=== PATIENT | male | born 1990 | race Caucasian/White ===

== ENCOUNTER 2019-02-02 06:54 | Observation (INO) ==
[2019-02-02 07:55] LABS: Basophils # (auto) 0.02 K/uL (0-0.2); Basophils % (auto) 0.4 %; Eosinophils # (auto) 0.07 K/uL (0-0.5); Eosinophils % (auto) 1.4 %; Hemoglobin 15.8 g/dL (14.0-18.0); Immature Granulocytes # (auto) 0.03 K/uL (0.00-0.02); Immature Granulocytes % (auto) 0.6 %; Lymphocytes # (auto) 1.54 K/uL (1.2-3.4); Lymphocytes % (auto) 30.2 %; Mean Corpuscular Hemoglobin 31.5 pg (25-34); Mean Corpuscular Hgb Conc 35.1 g/dL (32-36); Mean Corpuscular Volume 89.6 fL (80-100); Monocytes # (auto) 0.44 K/uL (0.11-0.59); Monocytes % (auto) 8.6 %; Neutrophils % (auto) 58.8 %; Platelet Count 178 K/uL (130-400); RDW Coefficient of Variation 13.2 % (11.5-14.5); RDW Standard Deviation 43.2 fL (36.4-46.3); Red Blood Count 5.02 M/uL (4.7-6.1)
[2019-02-02 08:02] LABS: Appearance Urine Clear (Clear); Bilirubin Urine Negative (Negative); Blood Urine Negative (Negative); Color Urine Yellow; Glucose Urine UA Negative (Negative); Ketones Urine Negative (Negative); Leukocyte Esterase Urine Negative (Negative); Nitrite Urine Negative (Negative); Protein Urine Negative (Negative); Specific Gravity Urine >= 1.030 (1.000-1.030); Urobilinogen Urine Negative (Negative)
[2019-02-02 08:02] LABS: Alanine Aminotransferase 66 U/L (12-78); Aspartate Aminotransferase 24 U/L (15-37); BUN Creatinine Ratio 13.2 (10-20); Blood Urea Nitrogen 17 mg/dl (7-18); Calcium 8.8 mg/dl (8.5-10.1); Carbon Dioxide 25 mmol/L (21-32); Chloride 107 mmol/L (98-107); Creatinine Clr Calc Pharmacy 107.9 ml/min; Est GFR (African American) 83.9; Est GFR (Non-African American) 72.4; Glucose 148 mg/dl (70-99); Lipase 74 U/L (73-393); Partial Thromboplastin Ratio 1.1; Partial Thromboplastin Time 28.6 Seconds (21.0-31.0); Potassium 3.8 mmol/L (3.5-5.1); Prothrombin Time 10.5 Seconds (9.0-12.0); Sodium 140 mmol/L (136-145)
[2019-02-02 08:07] LABS: Albumin Globulin Ratio 1.2 (0.9-2); Alkaline Phosphatase 90 U/L (45-117); Bilirubin,Total 0.5 mg/dl (0.2-1); Globulin 3.3 gm/dl (2.5-4.0); Total Protein 7.3 gm/dl (6.4-8.2); Troponin I < 0.015 ng/ml (0-0.045)
--- NOTE | 2019-02-02 08:17 | XRay Report ---
XR chest 1V portable HISTORY: 28 years-old Male abdominal pain acute generalized abdominal pain COMPARISON: CT thoracic spine 07/12/2013 TECHNIQUE: Portable AP view of the chest FINDINGS: Cardiomediastinal and hilar silhouettes are within normal limits. No pneumothorax, pleural effusion, focal airspace consolidation or overt pulmonary edema. Bones of the chest appear grossly intact. IMPRESSION: No acute process. The above report was generated using voice recognition software. It may contain grammatical, syntax o r spelling errors. Electronically signed by: Garret Alejandro M.D. 02/02/2019 8:16 AM
[2019-02-02] MEDS ORDERED: ONDANSETRON INJ 2 MG/ML 2 ML VIAL IV PRN ×3 (09:41→16:42)
--- NOTE | 2019-02-02 09:46 | Emergency Department Note ---
History of Present Illness General Chief Complaint: Abdominal Pain Stated Complaint: ABDOMINAL PAIN Source: patient Mode of arrival: ambulatory Limitations: no limitations History of Present Illness Provider Complaint: abdominal pain Onset (ago): 2 hour(s) Pain Consistency: constant Location: periumbilical Radiation: none Migration to: no migration Severity: moderate Maximum Pain Intensity: 7 Current Pain Intensity: 7 Quality: + cramping, + fullness and + sharp Relieved By: + rest Exacerbated By: + movement Context: + other (eating breakfast, hx. umbilical hernia) Associated Symptoms: + nausea; no vomiting, no diarrhea, no fever, no chills, no constipation, no dysuria, no hematuria, no headache, no chest pain, no weakness and no breathing difficulty Treatments prior to arrival: none This 28-year-old male patient presents emergency department today, ambulatory, complaining of periumbilical abdominal pain which began while eating breakfast this morning. Patient reports a history of an umbilical hernia, and over the weekend struck it with a car door. He states on Saturday he noticed that the hernia "moved", and states on Saturday it "moved back into place". The patient states he has been experiencing some intermittent pain and discomfort in the area throughout the weekend, but this morning while eating breakfast he felt the hernia had twisted in his abdomen. The patient reports soreness above his bellybutton with generalized abdominal discomfort. He denies any vomiting, fever, diarrhea, constipation. Last bowel movement was yesterday. He does report associated nausea. He was not able to finish his breakfast or drink an ything this morning due to the symptoms. He denies history of surgical repair. He denies any chest pain, dyspnea, weakness, numbness, tingling, or other associated symptoms. Home Medications Home Medications Medication Instructions Recorded Confirmed Type No Known Home Medications 02/02/19 02/02/19 History Allergies Allergy/AdvReac Type Severity Reaction Status Date / Time erythromycin base Allergy Unknown unk Verified 02/02/19 07:22 sulfisoxazole Allergy Unknown unk Verified 02/02/19 07:22 Past Med/Surg History Medical History No pertinent past medical history Social History Feels Safe at Home: Yes Smoking Status: Former smoker Review of Systems A total of 10 systems reviewed and were otherwise negative Physical Exam Vital Signs: Vital Signs - 24 hr 02/02/19 07:00 02/02/19 07:33 02/02/19 08:02 Temperature 36.6 C Temperature Source Oral Pulse Rate 73 Pulse Rate [Left F ernie] 93 H Pulse Rhythm Regular Pulse Rhythm [Left Finger] Pulse Strength [Le ft Finger] Respiratory Rate 18 18 Respiratory Effort / Characteristics Non-Labored Respiratory Depth Normal Respiratory Patter n Regular Blood Pressure 150/96 H Blood Pressure [Le ft Arm] 117/83 Blood Pressure Brittani n 114 Blood Pressure Brittani n [Left Arm] 94 Blood Pressure Pos ition Sitting Blood Pressure Pos ition [Left Arm] Pulse Oximetry 98 97 98 Oxygen Delivery Me thod Room Air Room Air Room Air Sepsis Recent Feve r Within 48 Hours No Sepsis Action Take n by Nursing No Action Required 02/02/19 09:29 02/02/19 11:00 02/02/19 12:33 Temperature Temperature Source Pulse Rate 74 Pulse Rate [Left F ernie] 82 102 H Pulse Rhythm Pulse Rhythm [Left Finger] Pulse Strength [Le ft Finger] Respiratory Rate 24 20 20 Respiratory Effort / Characteristics Non-Labored Respiratory Depth Normal Respiratory Patter n Regular Blood Pressure 136/92 Blood Pressure [Le ft Arm] 136/75 140/83 Blood Pressure Brittani n Blood Pressure Brittani n [Left Arm] 95 102 Blood Pressure Pos ition Blood Pressure Pos ition [Left Arm] Pulse Oximetry 98 96 97 Oxygen Delivery Me thod Room Air Room Air Room Air Sepsis Recent Feve r Within 48 Hours Sepsis Action Take n by Nursing 02/02/19 12:54 Temperature 37.1 C Temperature Source Oral Pulse Rate Pulse Rate [Left F ernie] 79 Pulse Rhythm Pulse Rhythm [Left Finger] Regular Pulse Strength [Le ft Finger] Normal Respiratory Rate 18 Respiratory Effort / Characteristics Non-Labored Sponta neous Respiratory Depth Normal Respiratory Patter n Blood Pressure Blood Pressure [Le ft Arm] 129/69 Blood Pressure Brittani n Blood Pressure Brittani n [Left Arm] 89 Blood Pressure Pos ition Blood Pressure Pos ition [Left Arm] Sitting Pulse Oximetry 98 Oxygen Delivery Me thod Room Air Sepsis Recent Feve r Within 48 Hours Sepsis Action Take n by Nursing Physical Exam: VITALS: Vitals are noted on the nurse's note and reviewed by myself. Vital signs stable. GENERAL: This is a 28-year-old obese white male, in no acute distress, nondiaphoretic, well-developed well-nourished. SKIN: The skin was without rashes, erythema, edema, or bruising. There is no tenting of the skin. Capillary refill less than 2 seconds. HEAD: Normocephalic atraumatic. EARS: External auditory canals clear, tympanic membranes pearly [place] without erythema or effusion bilaterally. EYES: Pupils equal round and reactive to light and accommodation. Conjunctivae without injection, sclerae without icterus. NOSE: Patent, turbinates without inflammation or discharge. No sinus tend erness. MOUTH: Mucous membranes moist. Tonsils are not enlarged. Pharynx without erythema or exudate. Uvula midline. Airway patent. Tongue does not deviate. NECK: Supple without nuchal rigidity. No lymphadenopathy. HEART: Regular rate and rhythm without murmurs gallops or rubs. LUNGS: Clear to auscultation bilaterally without wheezes, rales or rhonchi. No retractions or accessory muscle use. ABDOMEN: Positive bowel sounds x 4. Normal tympanic percussion. Periumbilical abdominal tenderness to palpation. The abdomen is otherwise soft, nontender, without masses or organomegaly. No palpable hernia noted per my exam. Gottlieb sign negative. No guarding or rebound tenderness. No CVA tenderness bilaterally. MUSCULOSKELETAL: No muscle atrophy, erythema, or edema noted. Full range of motion without joint tenderness in all extremities. No tenderness to palpation. Normal gait. Strength 5/5 throughout. NEURO: Patient was alert and oriented to person place and time. No focal ne urological deficits. Course The patient was seen and evaluated as above. IV access obtained, labs drawn. Imaging performed and reviewed by myself and radiologist as above. I did receive a phone call from Dr. Geller regarding the findings. Labs reviewed by myself. I discussed the findings with the patient at bedside. I discussed the case with Dr. Aguirre. He did agree to see and evaluate the patient. The patient was ultimately taken to the OR after evaluation by the general surgery team. Administered Medications Ioversol (Optiray 320 100ml) 94 ml IV ONCE PRN PRN Reason: Interaction Checking Stop: 02/06/19 10:20 Last Admin: 02/02/19 10:21 Dose: 94 ml Documented by: [id number] Ondansetron HCl (Zofran) 4 mg IV Q1HWA PRN PRN Reason: Nausea Stop: 03/04/19 09:40 Last Admin: 02/02/19 09:50 Dose: 4 mg Documented by: [id number] Discontinued Medications Bupivacaine HCl (Marcaine 0.5% Mpf) Confirm Administered Dose 30 ml .ROUTE .STK- MED ONE Stop: 02/02/19 13:22 Last Admin: 02/02/19 14:14 Dose: 5 ml Documented by: [id number] Cefazolin Sodium (Ancef) Confirm Administered Dose 1,000 mg .ROUTE .STK-MED ONE Stop: 02/02/19 13:22 Last Admin: 02/02/19 14:13 Dose: 1,000 mg Documented by: [id number] Medical Decision Making Differential Diagnosis + peptic ulcer disease, + biliary pathology, + UTI, + obstruction, + mesenteric ischemia, + aortic pathology, + infections, + inflammatory bowel disease, + renal colic, + torsion (male), + epididymitis (male), + abdominal pain, + appendicitis, + calculus of kidney, + constipation, + diverticulitis, + endomet riosis, + gastroenteritis, + pancreatitis and + small bowel obstruction Home Medications Current Medication List: was personally reviewed by me Laboratory Data Attestation: I reviewed the patient's lab results. No leukocytosis, anemia, thrombocytopenia. Renal, hepatic function, and electrolytes without significant abnormality. Coags normal. Troponin negative. Lipase 74. Urinalysis without evidence of blood or infection. Result diagrams: 02/02/19 07:28 02/02/19 07:28 Lab Results 02/02/19 02/02/19 02/02/19 Range/Units 07:28 07:28 07:28 WBC 5.10 (4.8-10.8) K/uL RBC 5.02 (4.7-6.1) M/uL Hgb 15.8 (14.0-18.0) g/dL Hct 45.0 (42-52) % MCV 89.6 (80-100) fL MCH 31.5 (25-34) pg MCHC 35.1 (32-36) g/dL RDW Std Deviation 43.2 (36.4-46.3) fL RDW Coeff of Jad 13.2 (11.5-14.5) % Plt Count 178 (130-400) K/uL MPV 9.0 (7.4-10.4) fL Immature Gran % (Auto) 0.6 % Neut % (Auto) 58.8 % Lymph % (Auto) 30.2 % Barber % (Auto) 8.6 % Eos % (Auto) 1.4 % Baso % (Auto) 0.4 % Immature Gran # (Auto) 0.03 H (0.00-0.02) K/uL Neut # (Auto) 3.00 (1.4-6.5) K/uL Lymph # (Auto) 1.54 (1.2-3.4) K/uL Barber # (Auto) 0.44 (0.11-0.59) K/uL Eos # (Auto) 0.07 (0-0.5) K/uL Baso # (Auto) 0.02 (0-0.2) K/uL PT 10.5 (9.0-12.0) Seconds INR 1.0 (0.9-1.1) APTT 28.6 (21.0-31.0) Seconds PTT Ratio 1.1 Sodium 140 (136-145) mmol/L Potassium 3.8 (3.5-5.1) mmol/L Chloride 107 (98-107) mmol/L Carbon Dioxide 25 (21-32) mmol/L Anion Gap 8.0 (3-11) BUN 17 (7-18) mg/dl Creatinine 1.32 (0.6-1.4) mg/dl Est Cr Clr Drug Dosing 107.9 ml/min Est GFR ( Amer) 83.9 Est GFR (Non-Af Amer) 72.4 BUN/Creatinine Ratio 13.2 (10-20) Glucose 148 H (70-99) mg/dl Calcium 8.8 (8.5-10.1) mg/dl Total Bilirubin 0.5 (0.2-1) mg/dl AST 24 (15-37) U/L ALT 66 (12-78) U/L Alkaline Phosphatase 90 (45-117) U/L Troponin I < 0.015 (0-0.045) ng/ml Total Protein 7.3 (6.4-8.2) gm/dl Albumin 4.0 (3.4-5.0) gm/dl Globulin 3.3 (2.5-4.0) gm/dl Albumin/Globulin Ratio 1.2 (0.9-2) Lipase 74 (73-393) U/L Urine Color Urine Appearance (Clear) Urine pH (4.5-7.5) Ur Specific [place] (1.000-1.030) Urine Protein (Negative) Urine Glucose (UA) (Negative) Urine Ketones (Negative) Urine Blood (Negative) Urine Nitrite (Negative) Urine Bilirubin (Negative) Urine Urobilinogen (Negative) Ur Leukocyte Esterase (Negative) 02/02/19 Range/Units Unknown WBC (4.8-10.8) K/uL RBC (4.7-6.1) M/uL Hgb (14.0-18.0) g/dL Hct (42-52) % MCV (80-100) fL MCH (25-34) pg MCHC (32-36) g/dL RDW Std Deviation (36.4-46.3) fL RDW Coeff of Jad (11.5-14.5) % Plt Count (130-400) K/uL MPV (7.4-10.4) fL Immature Gran % (Auto) % Neut % (Auto) % Lymph % (Auto) % Barber % (Auto) % Eos % (Auto) % Baso % (Auto) % Immature Gran # (Auto) (0.00-0.02) K/uL Neut # (Auto) (1.4-6.5) K/uL Lymph # (Auto) (1.2-3.4) K/uL Barber # (Auto) (0.11-0.59) K/uL Eos # (Auto) (0-0.5) K/uL Baso # (Auto) (0-0.2) K/uL PT (9.0-12.0) Seconds INR (0.9-1.1) APTT (21.0-31.0) Seconds PTT Ratio Sodium (136-145) mmol/L Potassium (3.5-5.1) mmol/L Chloride (98-107) mmol/L Carbon Dioxide (21-32) mmol/L Anion Gap (3-11) BUN (7-18) mg/dl Creatinine (0.6-1.4) mg/dl Est Cr Clr Drug Dosing ml/min Est GFR ( Amer) Est GFR (Non-Af Amer) BUN/Creatinine Ratio (10-20) Glucose (70-99) mg/dl Calcium (8.5-10.1) mg/dl Total Bilirubin (0.2-1) mg/dl AST (15-37) U/L ALT (12-78) U/L Alkaline Phosphatase (45-117) U/L Troponin I (0-0.045) ng/ml Total Protein (6.4-8.2) gm/dl Albumin (3.4-5.0) gm/dl Globulin (2.5-4.0) gm/dl Albumin/Globulin Ratio (0.9-2) Lipase (73-393) U/L Urine Color Yellow Urine Appearance Clear (Clear) Urine pH 5.0 (4.5-7.5) Ur Specific [place] >= 1.030 (1.000-1.030) Urine Protein Negative (Negative) Urine Glucose (UA) Negative (Negative) Urine Ketones Negative (Negative) Urine Blood Negative (Negative) Urine Nitrite Negative (Negative) Urine Bilirubin Negative (Negative) Urine Urobilinogen Negative (Negative) Ur Leukocyte Esterase Negative (Negative) Imaging Data Radiologist's Impression: XR chest 1V portable HISTORY: 28 years-old Male abdominal pain acute generalized abdominal pain COMPARISON: CT thoracic spine 07/12/2013 TECHNIQUE: Portable AP view of the chest FINDINGS: Cardiomediastinal and hilar silhouettes are within normal limits. No pneumot horax, pleural effusion, focal airspace consolidation or overt pulmonary edema. Bones of the chest appear grossly intact. IMPRESSION: No acute process. The above report was generated using voice recognition software. It may contain grammatical, syntax or spelling errors. Electronically signed by: Garret Alejandro M.D. 02/02/2019 8:[address] OF THE ABDOMEN AND PELVIS WITH CONTRAST CLINICAL HISTORY: periumbilical pain COMPARISON STUDY: None. TECHNIQUE: Following IV administration of 94 mL of Optiray-320, axial images of the abdomen and pelvis were obtained from the lung bases to the proximal femurs. Images were reviewed in the axial, sagittal, and coronal planes. IV contrast was administered without complication. Automated exposure control was utilized for the study. A dose lowering technique was utilized adhering to the principles of ALARA. Oral contrast was administered. CT DOSE: 1201.75 mGycm FINDINGS: Lung bases are unremarkable. There is fatty infiltration of the liver and mild hepatomegaly. The spleen, adrenal glands, kidneys and pancreas are normal. There is no biliary or pancreatic ductal dilatation. The appendix is normal. There is a fat-containing umbilical hernia which also contains a small amount of fluid. There is minimal infiltration within the hernia sac and the adjacent soft tissues. There is no evidence of bowel obstruction. Visualized skeletal structures are unremarkable. Trace mesenteric infiltration adjacent to the sigmoid colon is of doubtful significance. IMPRESSION: 1. Normal appendix. No bowel obstruction. 2. Fat and fluid containing umbilical hernia. Minimal infiltration within the hernia sac and adjacent soft tissues. This infiltration and fluid may reflect a degree of strangulation of the herniated fat and likely accounts for the patient's symptoms. 3. Fatty infiltration of the liver. Electronically signed by: Ruddy Geller M.D. 02/02/2019 10:46 AM ECG Data Attestation: I personally reviewed and interpreted this ECG as follows: Indication: abdominal pain Rate (beats per minute): 73 Rhythm: normal sinus Findings: no T-wave inversion, no ST elevation, no acute ischemic change and no ectopy Comparison ECG Date: no prior available Blood Pressure Blood Pressure Findings: Normal blood pressure MDM Narrative This 28-year-old male patient presents emergency department today for evaluation of abdominal pain. The patient notes an umbilical hernia for several months. He struck it with a car door over the weekend and felt it to reduce, "pop out", and reduced again. Since this morning, he has been experiencing significant pain and a twisting sensation in his abdomen. Work-up here in the ED does not show any infectious etiology. Labs are benign, but CT of the abdomen/pelvis does show evidence of a fat and fluid containing umbilical hernia with minimal infiltration within the hernia sac and adjacent soft tissues, likely associated with a degree of strangulation of the fat. I did discuss the case with Dr. Aguirre, general surgeon on-call. He did agree to see and evaluate the patient. After his evaluation, the patient was taken to the OR for repair of the hernia. The patient remained very comfortable while here in the emergency department. He declined any antiemetics or pain medication offered. Please see Dr. Aguirre's dictation regarding ongoing management care of this patient. The chart was completed utilizing Direct Access Software voice recognition software. Grammatical errors, random word insertions, pronoun errors, and incomplete sentences are an occasional consequence of this system due to software limitations, ambient noise, and hardware issues. Any formal questions or concerns about the content, text, or information contained within the body of this dictation should be directly addressed to the provider for clarification. Impression & Plan Strangulated umbilical hernia, Abdominal pain Discharge Plan Visit Data *Final* Discharge Date/Time: 02/02/19 12:58 Chief Complaint: Abdominal Pain Stated Complaint: ABDOMINAL PAIN ED Provider: Patricio Peralta ED Midlevel Provider: Lisbeth Bronson Discharge Problem: Strangulated umbilical hernia, Abdominal pain Patient Disposition: Still a Patient Condition: Good Discharge Instructions Interventions: ED Discharge Assessment Last Done: 02/02/19 12:33
[2019-02-02] MEDS ORDERED: IOVERSOL 100ml IV PRN (10:21)
--- NOTE | 2019-02-02 10:47 | CT Scan Report ---
CT OF THE ABDOMEN AND PELVIS WITH CONTRAST CLINICAL HISTORY: periumbilical pain COMPARISON STUDY: None. TECHNIQUE: Following IV administration of 94 mL of Optiray-320, axial images of the abdomen and pelvi s were obtained from the lung bases to the proximal femurs. Images were reviewed in the axial, sagitt al, and coronal planes. IV contrast was administered without complication. Automated exposure contro l was utilized for the study. A dose lowering technique was utilized adhering to the principles of A YOBANI. Oral contrast was administered. CT DOSE: 1201.75 mGycm FINDINGS: Lung bases are unremarkable. There is fatty infiltration of the liver and mild hepatomegaly . The spleen, adrenal glands, kidneys and pancreas are normal. There is no biliary or pancreatic duct al dilatation. The appendix is normal. There is a fat-containing umbilical hernia which also contains a small amount of fluid. There is minimal infiltration within the hernia sac and the adjacent soft t issues. There is no evidence of bowel obstruction. Visualized skeletal structures are unremarkable. T race mesenteric infiltration adjacent to the sigmoid colon is of doubtful significance. IMPRESSION: 1. Normal appendix. No bowel obstruction. 2. Fat and fluid containing umbilical hernia. Minimal infiltration within the hernia sac and adjacent soft tissues. This infiltration and fluid may reflect a degree of strangulation of the herniated fat and likely accounts for the patient's symptoms. 3. Fatty infiltration of the liver. Electronically signed by: Ruddy Geller M.D. 02/02/2019 10:46 AM
--- NOTE | 2019-02-02 12:20 | History & Physical Report ---
Date of Service February 02, 2019 Assessment & Plan (1) Strangulated umbilical hernia: This is a 28y M who presents to the [facility] ED today with umbilical pain and nausea. CT a/p revealed findings of a fat and fluid containing umbilical hernia, concerning for strangulation of the herniated fat. On examination patient is tender to palpation in the umbilical region. We will plan to take the patient to the OR today for an open umbilical hernia repair. Will keep patient NPO with IVF and give pre-op abx. Dr. Aguirre will obtain surgical consent. Dr. Aguirre-I examined the patient in the emergency room and I do feel that he should have the hernia repaired while he is here in the hospital. There is an element of incarceration with fluid which can indicate strangulation. We will proceed today History of Present Illness Primary Care Provider: Rc Malave III, SRIDEVI This is a 28y M with no significant past medical history who presents to the [facility] ED on 02/02/19 with abdominal pain and nausea. Patient says he has had an umbilical hernia now for the past few months that presented as a bulge. It has not normally bothered him, but this past Saturday he hit it with his truck door and it reduced and he subsequently developed pain and nausea. Since Saturday he has had intermittent pain with it and when the hernia popped out again on Saturday he felt somewhat better. Today the hernia once again reduced and the patient had an increase in pain 7/10, that was constant, and sharp/stabbing in nature. He felt sweaty and developed shortness of breath. He says when he is lying down the pain is improved, but with any activity the pain recurs. He came to the ED for further evaluation since the pain was constant and severe. He had a CT a/p that revealed a fat and fluid containing umbilical hernia, minimal infiltration within the hernia sac and adjacent soft tissues. This infiltration and fluid may reflect a degree of strangulation of the herniated fat. WBC 5.1 and patient afebrile. The patient denies any change in bowel habits, last BM was yesterday. He denies any skin changes associated with the hernia or bouts of emesis. Surgery was consulted for further evaluation. Allergies Allergy/AdvReac Type Severity Reaction Status Date / Time erythromycin base Allergy Unknown unk Verified 02/02/19 07:22 sulfisoxazole Allergy Unknown unk Verified 02/02/19 07:22 Home Medications Home Medications Medication Instructions Recorded Confirmed Type No Known Home Medications 02/02/19 02/02/19 History Past Med/Surg History Medical History No pertinent past medical history Social History Feels Safe at Home: Yes Smoking Status: Former smoker Review of Systems Constitutional: + sweats; no fever and no chills Respiratory: shortness of breath Cardiovascular: no chest pain Gastrointestinal: + abdominal pain (christen-umbilical region) and + nausea; no vomiting and no change in bowel habits Integumentary: no skin changes noted with hernia Physical Exam Physical Exam: awake/alert Respiratory: normal respiratory effort Gastrointestinal (Abdomen): Inspection/Auscultation: abdomen not distended Percussion/Palpation: + abdomen tender (christen-umbilical) and abdomen soft + umbilical hernia, no skin changes noted, slight bulge TTP Results & Data Vital Signs (Past 12 Hours) Vital Signs Temp Pulse Pulse Resp BP BP Pulse Ox 02/02/19 11:00 102 H 20 140/83 96 02/02/19 09:29 82 24 136/75 98 02/02/19 08:02 93 H 18 117/83 98 02/02/19 07:33 97 02/02/19 07:00 36.6 C 73 18 150/[address] OF THE ABDOMEN AND PELVIS WITH CONTRAST CLINICAL HISTORY: periumbilical pain COMPARISON STUDY: None. TECHNIQUE: Following IV administration of 94 mL of Optiray-320, axial images of the abdomen and pelvis were obtained from the lung bases to the proximal femurs. Images were reviewed in the axial, sagittal, and coronal planes. IV contrast was administered without complication. Automated exposure control was utilized for the study. A dose lowering technique was utilized adhering to the principles of ALARA. Oral contrast was administered. CT DOSE: 1201.75 mGycm FINDINGS: Lung bases are unremarkable. There is fatty infiltration of the liver and mild hepatomegaly. The spleen, adrenal glands, kidneys and pancreas are normal. There is no biliary or pancreatic ductal dilatation. The appendix is normal. There is a fat-containing umbilical hernia which also contains a small amount of fluid. There is minimal infiltration within the hernia sac and the adjacent soft tissues. There is no evidence of bowel obstruction. Visualized skeletal structures are unremarkable. Trace mesenteric infiltration adjacent to the sigmoid colon is of doubtful significance. IMPRESSION: 1. Normal appendix. No bowel obstruction. 2. Fat and fluid containing umbilical hernia. Minimal infiltration within the hernia sac and adjacent soft tissues. This infiltration and fluid may reflect a degree of strangulation of the herniated fat and likely accounts for the patient's symptoms. 3. Fatty infiltration of the liver. Electronically signed by: Ruddy Geller M.D. 02/02/2019 10:46 AM PG Care Time/CCT Total # of Minutes Spent Total Time Spent with Patient: Total time spent is greater than 50% in coordination of care (as documented) at patient's floor/unit and/or counseling patient:
[2019-02-02] MEDS ORDERED: CEFAZOLIN 2000MG 2,000 MG/15 ML SYR IV SCH (12:30)
--- NOTE | 2019-02-02 12:40 | Anesthesiology Consultation ---
Date of Service February 02, 2019 Assessment & Plan Chart Review Chart Review: Acceptable Risk for Surgery and Patient NOT seen in Pre Admission Testing Consults Requested none ASA [id number] Proposed Anesthesia Anesthesia Type: General History Surgery Operation Date: 02/02/19 11:05 Proposed Procedures p Open Umbilical Hernia Repair - Abdirahman Aguirre MD, FACS Height/Weight Height: 5 ft 9 in Weight: 125 kg Allergies Allergy/AdvReac Type Severity Reaction Status Date / Time erythromycin base Allergy Unknown unk Verified 02/02/19 07:22 sulfisoxazole Allergy Unknown unk Verified 02/02/19 07:22 Medications Home Medications Medication Instructions Recorded Confirmed Last Taken No Known Home Medications 02/02/19 02/02/19 Unknown Active Medications Generic Name Dose Route Start Last Admin Trade Name Freq PRN Reason Stop Dose Admin Ioversol 94 ml 02/02/19 10:21 02/02/19 10:21 Optiray 320 100ml IV 02/06/19 10:20 94 ml ONCE PRN Administration Interaction Checking Ondansetron HCl 4 mg 02/02/19 09:41 02/02/19 09:50 Zofran IV 03/04/19 09:40 4 mg Q1HWA PRN Administration Nausea NPO Date Last Intake of Fluids: 02/02/19 Time Last Intake of Fluids: 10:30 Last Intake of Fluids Comment: CT prep finished at 1030 Date Last Intake of Solids: 02/02/19 Time Last Intake of Solids: 06:30 Past Medical History Medical History No pertinent past medical history Exercise / Class Metabolic Activity II 4-5 Yardwork/Stairs/Walk up hill Past Anesthesia History No Hx of Anesthesia Complications and No Family Hx of Anesthesia Complications History of PONV No Hx of PONV and No Hx of Motion Sickness Social History Smoking Status: Former smoker Physical Exam Vital Signs Last Vital Signs Temp 36.6 C 02/02/19 07:00 Pulse 74 02/02/19 12:33 Resp 20 02/02/19 12:33 BP 136/92 02/02/19 12:33 Pulse Ox 97 02/02/19 12:33 Testing Laboratory Results 02/02/19 07:28 02/02/19 07:28 PT 10.5 Seconds (9.0-12.0) 02/02/19 07:28 INR 1.0 (0.9-1.1) 02/02/19 07:28 APTT 28.6 Seconds (21.0-31.0) 02/02/19 07:28 Urine Color Yellow 02/02/19 Unknown Urine Appearance Clear (Clear) 02/02/19 Unknown Urine pH 5.0 (4.5-7.5) 02/02/19 Unknown Ur Specific [place] >= 1.030 (1.000-1.030) 02/02/19 Unknown Urine Protein Negative (Negative) 02/02/19 Unknown Urine Glucose (UA) Negative (Negative) 02/02/19 Unknown Urine Ketones Negative (Negative) 02/02/19 Unknown Urine Nitrite Negative (Negative) 02/02/19 Unknown Ur Leukocyte Esterase Negative (Negative) 02/02/19 Unknown Electrocardiogram Date: 02/02/19 Findings: + NSR @ (at 72) Chest X-Ray Date: 02/02/19 Findings: + NAD
--- OUTSIDE RECORDS SUMMARY | 2019-02-02 12:48 | External Medical Summary | Continuity of Care Document ---
:1990 Author Name Latanya Faria, Provider Address Unavailable Unavailable , Care Team Providers Name Role Phone Unavailable Unavailable Unavailable Rc Perales Unavailable [email or web address] Rc Perales III Unavailable Unavailable Problems Acid reflux (530.81) (K21.9) Migraine headache (346.90) (G43.909) Chronic foot pain (729.5) (M79.673) Right shoulder pain (719.41) (M25.511) Left wrist pain (719.43) (M25.532) Fatigue (780.79) (R53.83) Nicotine dependence (305.1) (F17.200) Encounter for screening for lipid disorder (V77.91) (Z13.220 ) Hyperlipidemia (272.4) (E78.5) Allergies and Adverse Reactions No Known Drug Allergies (Allergy) Medications Allergy Giana SOTELO Refills: 0 Flaxseed Oil 1200 MG Oral Capsule; take BID SRIDEVI Malave Start: 16-Dec-2017 Refills: 0 Procedures History of Hand Surgery Status: Complete d Immunizations Tdap On: 21-Jan-2011 Family History Grandmother Family history of malignant neoplasm of breast (V16.3) (Z80. 3) Status: Active Grandfather Family history of malignant neoplasm of prostate (V16. 42) (Z80.42) Status: Active Social History - Smoking Status Former smoker Plan of Treatment Planned Observations Planned Goals not documented Results No Known Results Results not documented Encounters Appointment; Med OR[facility], Nursing Station 30-Jan-2018 15:30 Encounter Diagnosis: Problem not documented Appointment; Rc Malave CRNP 12-Dec-2017 16:40 Encounter Diagnosis: Problem not documented
[2019-02-02] MEDS ORDERED: NEOSTIGMINE METHYLSULFATE 5 MG/5 ML SYR ONE (12:59)
[2019-02-02] MEDS ORDERED: DEXAMETHASONE SOD INJ 4 MG/ML VIAL ONE (12:59)
[2019-02-02] MEDS ORDERED: SUCCINYLCHOLINE CHLORIDE 20 MG/ML 10 ML VIAL ONE (12:59)
[2019-02-02] MEDS ORDERED: CISATRACURIUM BESYLATE IV SOLN 2 MG/ML 10 ML VIAL IV ONE (12:59)
[2019-02-02] MEDS ORDERED: ONDANSETRON INJ 2 MG/ML 2 ML VIAL ONE (12:59)
[2019-02-02] MEDS ORDERED: LIDOCAINE HCL 2% 2 ML VIAL/AMP(20MG/ML) INFIL ONE (12:59)
[2019-02-02] MEDS ORDERED: PROPOFOL IV EMULSION 10 MG/ML 20 ML VIAL IV ONE (12:59)
[2019-02-02] MEDS ORDERED: GLYCOPYRROLATE 0.2 MG/ML VIAL ONE (12:59)
[2019-02-02] MEDS ORDERED: MIDAZOLAM HCL 1 MG/ML 2ML VIAL ONE (13:00)
[2019-02-02] MEDS ORDERED: fentaNYL citrate 100 MCG/2 ML VIAL ONE (13:00)
[2019-02-02] MEDS ORDERED: ePHEDrine sulfate 50 MG/ML AMP IV PRN (13:11)
[2019-02-02] MEDS ORDERED: LABETALOL HCL IV 5 MG/ML 20ML IV PRN (13:11)
[2019-02-02] MEDS ORDERED: PROMETHAZINE HCL 12.5 MG in SODIUM CHLORIDE 0.9% 50 ML IV PRN ×2 (13:11→16:42)
[2019-02-02] MEDS ORDERED: FLUMAZENIL 0.1 MG/1 ML 10 ML VIAL IV PRN (13:11)
[2019-02-02] MEDS ORDERED: HYDROmorphone INJ 1 MG/ML SYRINGE IV PRN ×2 (13:11→16:42)
[2019-02-02] MEDS ORDERED: NALOXONE HCL 0.4 MG/1 ML VIAL/CARP IV PRN (13:11)
[2019-02-02] MEDS ORDERED: ATROPINE SULFATE 0.1 MG/ML 10ML SYR IV PRN (13:11)
[2019-02-02] MEDS ORDERED: CEFAZOLIN 250 MG/ML 1 GM VIAL ONE (13:21)
[2019-02-02] MEDS ORDERED: BUPIVACAINE 0.5 % 5 MG/1 ML MPF 30ML VIAL ONE (13:21)
[2019-02-02] MEDS ORDERED: PHENYLEPHRINE HCL 10 MG/ML VIAL ONE (13:53)
--- NOTE | 2019-02-02 14:14 | Post Operative Brief Note ---
PG Immediate Post Op with CF Date of Surgery February 02, 2019 Pre & Post Diagnosis Operation Date: 02/02/19 11:05 Pre-Op Diagnosis: incarcerated umbilical hernia Post-Op Diagnosis: incarcerated umbilical hernia I identified the patient and participated in the time-out.: Yes Procedure Operation Date: 02/02/19 11:05 Actual Procedures p Open Umbilical Hernia Repair(Not Applicable) - Abdirahman Aguirre MD, FACS Surgeon Abdirahman Aguirre MD, FACS Fitter T[employer] nurses Estimated Blood Loss 10 Findings Consistent with Post-Op Diagnosis Specimens Specimen Description: None
[2019-02-02] MEDS ORDERED: ACETAMINOPHEN 1,000 MG/100 ML VIAL IV STA (14:15)
--- NOTE | 2019-02-02 14:35 | Operative Report ---
DATE OF OPERATION: 02/02/2019 NAME OF OPERATION: Open umbilical hernia repair. PREOPERATIVE DIAGNOSIS: Incarcerated umbilical hernia. POSTOPERATIVE DIAGNOSIS: Incarcerated umbilical hernia. STAFF SURGEON: Abdirahman Aguirre MD. ANESTHESIA: General. DESCRIPTION OF PROCEDURE: The patient was brought in the operating room and placed on the operating table in supine position. His abdomen was prepped and draped in usual fashion. 0.5% plain Marcaine was used to anesthetize skin and subcutaneous tissue. Incision was made just below the umbilicus, carrying dissection down to the fascia, identifying the hernia sac which was opened. The contents were reduced. The umbilicus was dissected away from the fascia showing approximately 2 cm defect. This was closed using interrupted #1 Ethibond suture. The umbilicus was then reattached to the fascia using 2-0 chromic suture and then the subcutaneous tissue reapproximated using 2-0 plain suture. Skin reapproximated using 4-0 nylon suture. The patient was transferred to recovery room in stable condition. I attest to the content of the Intraoperative Record and any orders documented therein. Any exception s are noted below.
[2019-02-02] MEDS: fentaNYL citrate 100 MCG/2 ML VIAL IV PRN ×3 (15:10→15:20)
--- NOTE | 2019-02-02 15:10 | Anesthesiology Progress Note ---
Date of Service February 02, 2019 Anesthesia Post Procedure Vital Signs Vital Signs: Temp Pulse Pulse Pulse Resp BP BP 02/02/19 15:00 36.3 C L 68 20 122/75 02/02/19 14:50 64 18 118/68 02/02/19 14:40 65 18 123/66 02/02/19 14:30 67 16 122/63 02/02/19 14:23 36.5 C 92 H 10 L 132/71 02/02/19 12:54 37.1 C 79 18 129/69 02/02/19 12:33 74 20 136/92 02/02/19 11:00 102 H 20 140/83 02/02/19 09:29 82 24 136/75 02/02/19 08:02 93 H 18 117/83 02/02/19 07:33 02/02/19 07:00 36.6 C 73 18 150/96 H Pulse Ox 02/02/19 15:00 93 02/02/19 14:50 94 02/02/19 14:40 100 02/02/19 14:30 98 02/02/19 14:23 95 02/02/19 12:54 98 02/02/19 12:33 97 02/02/19 11:00 96 02/02/19 09:29 98 02/02/19 08:02 98 02/02/19 07:33 97 02/02/19 07:00 98 Pain Intensity Abdomen: Pain Intensity: 0 Transfer of Care Handoff Completed per policy Notes Mental Status: alert / awake / arousable Patient Amnestic to Procedure: Yes Nausea / Vomiting: adequately controlled Pain: adequately controlled Airway Patency, RR, SpO2: stable & adequate BP & HR: stable & adequate Hydration State: stable & adequate Anesthetic Complications: no major complications apparent
[2019-02-02] MEDS ORDERED: HYDROmorphone INJ 0.5 MG/0.5 ML SYR IV PRN (16:42)
[2019-02-02] MEDS ORDERED: HYDROCODONE/ACETAMOPHEN 5/325MG TAB PO PRN (16:42)
[2019-02-02] MEDS ORDERED: IBUPROFEN 600 MG TAB PO PRN (16:42)
[2019-02-02] MEDS ORDERED: PROMETHAZINE HCL 25 MG in SODIUM CHLORIDE 0.9% 50 ML IV PRN (16:42)
[2019-02-02] MEDS ORDERED: ACETAMINOPHEN 325 MG TAB PO PRN (16:42)
[2019-02-02] MEDS ORDERED: SODIUM CHLORIDE 0.9% 1000ML 1,000 ML IV SCH (18:00)
[2019-02-02] MEDS: HYDROCODONE/ACETAMOPHEN 5/325MG TAB PO PRN (19:29)
[2019-02-02] MEDS: CEFAZOLIN 1000MG 1,000 MG/7.5 ML SYR IV SCH (22:11)
[2019-02-03] MEDS: CEFAZOLIN 1000MG 1,000 MG/7.5 ML SYR IV SCH (05:35)
--- NOTE | 2019-02-03 08:15 | Anesthesiology Progress Note ---
Date of Service February 03, 2019 Anesthesia Post Procedure Vital Signs Vital Signs: Temp Pulse Pulse Pulse Resp BP BP 02/03/19 07:44 36.7 C 66 18 120/78 02/03/19 06:14 36.5 C 62 16 122/75 02/03/19 03:24 36.5 C 62 16 122/75 02/02/19 22:43 36.9 C 77 16 119/70 02/02/19 18:55 36.9 C 70 16 113/66 02/02/19 17:53 36.8 C 63 16 120/70 02/02/19 16:50 36.4 C L 70 18 126/74 02/02/19 16:20 36.2 C L 65 16 123/76 02/02/19 15:50 36.9 C 82 18 138/81 02/02/19 15:40 71 20 140/79 02/02/19 15:30 72 20 131/78 02/02/19 15:20 71 20 116/66 02/02/19 15:10 71 22 137/79 02/02/19 15:00 36.3 C L 68 20 122/75 02/02/19 14:50 64 18 118/68 02/02/19 14:40 65 18 123/66 02/02/19 14:30 67 16 122/63 02/02/19 14:23 36.5 C 92 H 10 L 132/71 02/02/19 12:54 37.1 C 79 18 129/69 02/02/19 12:33 74 20 136/92 02/02/19 11:00 102 H 20 140/83 02/02/19 09:29 82 24 136/75 Pulse Ox 02/03/19 07:44 95 02/03/19 06:14 94 02/03/19 03:24 94 02/02/19 22:43 92 02/02/19 18:55 93 02/02/19 17:53 97 02/02/19 16:50 97 02/02/19 16:20 97 02/02/19 15:50 93 02/02/19 15:40 96 02/02/19 15:30 95 02/02/19 15:20 95 02/02/19 15:10 90 02/02/19 15:00 93 02/02/19 14:50 94 02/02/19 14:40 100 12/16/19 14:30 98 02/02/19 14:23 95 02/02/19 12:54 98 02/02/19 12:33 97 02/02/19 11:00 96 02/02/19 09:29 98 Notes Mental Status: alert / awake / arousable Patient Amnestic to Procedure: Yes Nausea / Vomiting: adequately controlled Pain: adequately controlled Airway Patency, RR, SpO2: stable & adequate BP & HR: stable & adequate Hydration State: stable & adequate Anesthetic Complications: no major complications apparent and Pt Satisfied with anesthetic care
[2019-02-03] MEDS: HYDROCODONE/ACETAMOPHEN 5/325MG TAB PO PRN (08:48)
--- NOTE | 2019-02-04 08:32 | Discharge Summary ---
PRINCIPAL DIAGNOSIS: Incarcerated umbilical hernia. PROCEDURES: The patient underwent repair of incarcerated umbilical hernia. HISTORY OF PRESENT ILLNESS: The patient is a 28-year-old male presenting to the Emergency Room with severe abdominal pain near his umbilicus found with what appeared to be an incarcerated umbilical hernia. HOSPITAL COURSE: The patient was taken to the operating room on 02/02/2019 where he underwent open umbilical hernia repair which he tolerated well. He did well overnight and was felt stable for discharge home on 02/03/2019. His physical findings were essentially normal with stable wound. He was to be seen in the surgical clinic within 1 week.
== END 2019-02-03 09:22 | disposition home or self-care (01) ==
LOC: ED 06:54 → 3W 12:46 → ASU 12:46